=== PATIENT | male | born 1985 | race Caucasian/White ===

== ENCOUNTER → 2019-02-18 14:55 | Outpatient (CLI) | payer SELFPAY ==
--- NOTE | 2019-02-18 14:58 | DI.RAD.S_ITS ---
PROCEDURE: XR CHEST 2V INDICATIONS: SOB, Cough TECHNIQUE: 2 views of the chest were acquired. COMPARISON: None. FINDINGS: Surgical changes and devices: None. Lungs and pleura: Lungs are clear. No pleural effusions or pneumothorax. Mediastinum: Mediastinal contours are normal. Heart size is normal. Bones and chest wall: No suspicious bony abnormalities. Soft tissues appear unremarkable. IMPRESSION: No acute disease. Dictated by: Skip Chavez M.D. on 02/18/2019 at 15:29 Approved by: Skip Chavez M.D. on 02/18/2019 at 15:31
== END ==
PROVIDERS: Visit Provider Nurse Practitioner
DX: R06.02 Shortness of breath (principal); R05 Cough
CPT/HCPCS: 71046

== ENCOUNTER → 2020-02-06 11:02 | Outpatient (CLI) | payer SELFPAY ==
--- NOTE | 2020-02-06 11:03 | DI.RAD.S_ITS ---
PROCEDURE: XR ANKLE RT MIN 3V INDICATIONS: medal malleolus pain TECHNIQUE: AP, oblique, and lateral nonweightbearing views of the ankle were acquired. COMPARISON: None. FINDINGS: Bones: No fractures or dislocations. Small plantar and Achilles spurs. Ankle mortise is normally aligned. No suspicious bony lesions. Soft tissues: No tibiotalar joint effusion. Achilles tendon appears normal. IMPRESSION: No acute bony abnormality. Small plantar and Achilles spurs. Dictated by: Tone Washburn M.D. on 02/06/2020 at 10:29 Approved by: Tone Washburn M.D. on 02/06/2020 at 10:30
== END ==
PROVIDERS: Referring Provider Nurse Practitioner; Visit Provider Nurse Practitioner
DX: M25.571 Pain in right ankle and joints of right foot (principal); M77.51 Other enthesopathy of right foot and ankle
CPT/HCPCS: 73610

== ENCOUNTER → 2021-01-02 09:28 | Outpatient (CLI) | payer OTHER, SELFPAY ==
[2021-01-02 10:41] LABS: Add Manual Diff / Slide Review NO; Basophils Absolute Auto 100 /uL (0-100); Basophils Percent Auto 0.6 % (0-2); Eosinophils Absolute Auto 200 /uL (0-450); Eosinophils Percent Auto 2.9 % (2-4); Hematocrit 45.5 % (41-53); Hemoglobin 15.6 g/dL (13.5-17.5); Lymphocytes Absolute Auto 2500 /uL (1100-4500); Mean Corpuscular HGB Conc 34.4 % (30-36); Mean Corpuscular Hemoglobin 32.2 PG (26-34); Mean Corpuscular Volume 93.7 fL (80-100); Monocytes Absolute Auto 500 /uL (0-900); Neutrophils Absolute Auto 4900 /uL (1500-7000); Neutrophils Percent Auto 59.5 % (50-75); Platelet Count 123 X10^3/uL (150-400); Red Blood Cell Count 4.86 X10^6/uL (4.5-5.9); Red Cell Distribution Width 12.9 % (11.6-14.8); White Blood Cell Count 8.2 X10^3/uL (4.5-11.0)
[2021-01-02 10:51] LABS: Alanine Aminotransferase 46 IU/L (<50); Albumin 4.1 g/dL (3.5-5.0); Albumin Globulin Ratio 1.5 (1.0-2.8); Alkaline Phosphatase 73 U/L (38-126); Aspartate Aminotransferase 37 IU/L (17-59); BUN Creatinine Ratio 14.1 (6-22); Bilirubin Total 0.8 mg/dL (0.2-1.3); Blood Urea Nitrogen 9 mg/dL (9-20); Calcium 8.7 mg/dL (8.4-10.2); Carbon Dioxide 24 mmol/L (22-32); Chloride 110 mmol/L (98-107); Cholesterol 187 mg/dL (140-199); Estimated Glomerular Filt Rate > 60.0 mL/min (>60); Globulin 2.8 g/dL (1.7-4.1); Glucose 94 mg/dL (70-100); HDL Cholesterol 34 mg/dL (40-60); HEMOLYSIS < 15 (0-50); LDL Cholesterol Calculated 132 mg/dL (<100); Potassium 4.1 mmol/L (3.4-5.1); Sodium 138 mmol/L (137-145); Total Protein 6.9 g/dL (6.3-8.2); Triglycerides 107 mg/dL (35-150)
[2021-01-02 11:25] LABS: TSH w/ Reflex to FT4 2.68 uIU/mL (0.47-4.68)
== END ==
PROVIDERS: Referring Provider Family Medicine; Visit Provider Family Medicine
DX: F17.200 Nicotine dependence, unspecified, uncomplicated (principal); E66.9 Obesity, unspecified
CPT/HCPCS: 36415; 80053; 80061; 84443; 85025

== ENCOUNTER → 2021-04-11 12:27 | Outpatient (CLI) | payer OTHER, SELFPAY ==
[2021-04-11 13:57] LABS: Liquefaction Semen YES (YES); PH Semen 8.5 (7-8); Sperm Count 11 x10^6/mL (20-150); Sperm Morphology 30 %ABNORM (0-30)
[2021-04-11 14:00] LABS: Sperm Motility 50% % Motile
== END ==
PROVIDERS: PCP Family Medicine; Referring Provider Obstetrics & Gynecology; Visit Provider Obstetrics & Gynecology
DX: N46.9 Male infertility, unspecified (principal)
CPT/HCPCS: 89320

== ENCOUNTER 2021-05-08 23:43 | Emergency (ER) | payer OTHER, SELFPAY ==
--- NOTE | 2021-05-08 23:46 | ED.GENADULT ---
HPI - General Adult General Chief complaint: Recheck/Abnormal Lab/Rx Stated complaint: COVID exposure Time Seen by Provider: 05/08/21 23:46 Source: patient Mode of arrival: Ambulatory History of Present Illness HPI narrative: Patient is an otherwise healthy 35-year-old male. His father whom with the patient lives tested positive for COVID today. The patient is vaccinated. Patient's father has had symptoms for the past 3 days. Patient reports no current symptoms but would like to be tested for COVID. Related Data Home Medications Medication Instructions Recorded Confirmed No Known Home Medications 02/18/19 01/02/21 Allergies Allergy/AdvReac Type Severity Reaction Status Date / Time No Known Drug Allergies Allergy Verified 01/02/21 09:01 Review of Systems Constitutional Constitutional: Denies fever(s) and Denies headache(s) ENT Ears, Nose, Mouth, and Throat: Denies headache(s) Respiratory Respiratory: Denies cough Gastrointestinal Gastrointestinal: Reports system reviewed and no additional complaints, except as documented Neurologic Neurologic: Denies headache(s) Patient History Medical History Chest discomfort Foot pain Smoking Family History (Updated 01/06/21 @ 22:08 by Rachel Cast) Father Hyperlipidemia Diabetes mellitus Social History Smoking Status: Current every day smoker Smoking Status: Current every day smoker (1 PPD) Exam Initial Vital Signs Initial Vital Signs: Vital Signs Temperature 98.7 F 05/08/21 23:52 Pulse Rate 86 05/08/21 23:52 Respiratory Rate 16 05/08/21 23:52 Pulse Oximetry 98 05/08/21 23:52 HENMT Head: normal to inspection and normocephalic Resp Effort & Inspection: normal respiratory effort Cardio Rate: regular rate Skin General: no rashes or lesions noted Neuro General: patient alert, patient awake and moves all extremities Extrem General: normal to inspection Psych Appearance: grossly normal and well kempt Course Orders Ordered: ED Orders 05/08/21 23:47 COVID19 -Nasal swab/Pre-Proc Stat Vital Signs Vital signs: Vital Signs - 8 hr 05/08/21 23:52 Temperature 98.7 F Pulse Rate 86 Respiratory Rate 16 Pulse Oximetry 98 Medical Decision Making Lab Data Labs: Lab Results 05/08/21 Range/Units 23:47 SARS-CoV-2 (PCR) Negative (Negative) MDM Narrative Medical decision making narrative: Patient's COVID is negative. Discussed return precautions and follow-up instructions. Patient expressed understanding and agreement. Discharge Plan Departure Patient Disposition: Home Clinical Impression: Encounter for screening laboratory testing for COVID-19 virus Activity Restrictions/Additional Instructions: Your COVID-19 test was negative. I do recommend that you continue to wear your mask and isolate your cell from positive family members. Return to the emergency department for any new or worsening symptoms. Prescriptions: No Action No Known Home Medications 0RF Referrals: Donavon Wolf MD [Primary Care Provider] -
[2021-05-08 23:52] VITALS: PULSE 86; RESP 16; TEMP 37.1; O2SAT 98
[2021-05-09 00:06] LABS: COVID19 -Nasal RAPID Negative (Negative)
== END 2021-05-09 00:18 | disposition home or self-care (01) ==
PROVIDERS: Emergency Provider Emergency Medicine; PCP Family Medicine
DX: Z20.822 Contact with and (suspected) exposure to COVID-19 (principal); F17.200 Nicotine dependence, unspecified, uncomplicated
CPT/HCPCS: 87635; 99281; C9803

== ENCOUNTER → 2021-08-09 13:47 | Outpatient (CLI) | payer OTHER, SELFPAY | PROVIDERS: PCP Family Medicine; Referring Provider Physician Assistant; Visit Provider Physician Assistant | DX: J02.9 Acute pharyngitis, unspecified (principal) | CPT/HCPCS: 87070 ==

== ENCOUNTER → 2021-09-26 11:49 | Outpatient (CLI) | payer OTHER, SELFPAY ==
--- NOTE | 2021-09-26 12:05 | DI.RAD.S_ITS ---
PROCEDURE: XR HIP W PEL IF DONE BRAVO MIN 4V INDICATIONS: BILATERAL HIP PAIN TECHNIQUE: AP pelvis with lateral view(s) of the bilateral hip(s). COMPARISON: None. FINDINGS: Bones: No fractures or dislocations. Pelvic ring appears intact. No suspicious bony lesions. Bilateral joint spaces maintained. Soft tissues: The visualized bowel gas pattern is normal. No suspicious soft tissue calcifications. IMPRESSION: Unremarkable bilateral hip radiographs Approved by: Arjun Taylor M.D. on 09/26/2021 at 12:09
[2021-09-26 12:52] LABS: Add Manual Diff / Slide Review NO; Basophils Absolute Auto 100 /uL (0-100); Basophils Percent Auto 0.7 % (0-2); Eosinophils Absolute Auto 200 /uL (0-450); Eosinophils Percent Auto 2.2 % (2-4); Hematocrit 42.7 % (41-53); Hemoglobin 14.9 g/dL (13.5-17.5); Lymphocytes Absolute Auto 3500 /uL (1100-4500); Lymphocytes Percent Auto 36.6 % (25-40); Mean Corpuscular HGB Conc 34.9 % (30-36); Mean Corpuscular Hemoglobin 32.2 PG (26-34); Mean Corpuscular Volume 92.2 fL (80-100); Monocytes Absolute Auto 500 /uL (0-900); Monocytes Percent Auto 5.5 % (3-14); Neutrophils Absolute Auto 5200 /uL (1500-7000); Platelet Count 133 X10^3/uL (150-400); Red Blood Cell Count 4.63 X10^6/uL (4.5-5.9); Red Cell Distribution Width 13.3 % (11.6-14.8); White Blood Cell Count 9.5 X10^3/uL (4.5-11.0)
[2021-09-26 13:08] LABS: Alanine Aminotransferase 31 IU/L (<50); Albumin 4.5 g/dL (3.5-5.0); Albumin Globulin Ratio 1.6 (1.0-2.8); Alkaline Phosphatase 78 U/L (38-126); Aspartate Aminotransferase 28 IU/L (17-59); BUN Creatinine Ratio 14.3 (6-22); Bilirubin Total 0.7 mg/dL (0.2-1.3); Blood Urea Nitrogen 10 mg/dL (9-20); Calcium 8.8 mg/dL (8.4-10.2); Carbon Dioxide 25 mmol/L (22-32); Chloride 107 mmol/L (98-107); Cholesterol 167 mg/dL (140-199); Estimated Glomerular Filt Rate > 60 mL/min (>60); Globulin 2.8 g/dL (1.7-4.1); Glucose 87 mg/dL (70-100); HDL Cholesterol 40 mg/dL (40-60); HEMOLYSIS < 15 (0-50); LDL Cholesterol Calculated 106 mg/dL (<100); Potassium 4.1 mmol/L (3.4-5.1); Sodium 141 mmol/L (137-145); Total Protein 7.3 g/dL (6.3-8.2); Triglycerides 104 mg/dL (35-150)
[2021-09-30 18:17] LABS: Percent Free Testosterone 3.39 % (1.50-4.20); Testosterone Free 11.75 ng/dL (5.00-21.00); Testosterone Total 346.7 ng/dL (264.0-916.0)
== END ==
PROVIDERS: PCP Family Medicine; Referring Provider Family Medicine; Visit Provider Family Medicine
DX: D69.6 Thrombocytopenia, unspecified (principal); E78.2 Mixed hyperlipidemia; F17.200 Nicotine dependence, unspecified, uncomplicated; R53.83 Other fatigue; R86.8 Other abnormal findings in specimens from male genital organs; M25.551 Pain in right hip; M25.552 Pain in left hip
CPT/HCPCS: 36415; 73522; 80053; 80061; 84402; 84403; 85025

== ENCOUNTER → 2021-10-10 15:18 | Outpatient (CLI) | payer OTHER, SELFPAY ==
--- NOTE | 2021-11-01 08:12 | PM.CARDMON.1 ---
Surface Grinder Tender Report Referral & Results Date Patient Seen: 10/10/21 Requesting provider: Donavon Wolf Indication: Palpitations Duration of monitoring (days): 14 Diary information: There were 3 patient triggered events and 1 patient diary entry All for these events were associated variably with (within 45 seconds) sinus rhythm, PACs, and the single episode of SVT Data: Minimum heart rate identified was 40 beats per minute at 05:56 on 10/15/2021 Maximum sinus heart rate was 155 beats per minute at 15:14 on 10/12/2021 Maximum overall heart rate was 184 beats per minute at 13:04 on 10/17/2021 during a run of SVT Less than 1% of identified beats were ventricular or supraventricular ectopic in origin, which would classify them as rare. 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
== END ==
PROVIDERS: PCP Family Medicine; Referring Provider Family Medicine; Visit Provider Family Medicine
DX: R00.2 Palpitations (principal)
CPT/HCPCS: 93246; 93248

== ENCOUNTER → 2022-07-05 13:38 | Outpatient (CLI) | payer OTHER, SELFPAY ==
--- NOTE | 2022-07-05 13:41 | DI.RAD.S_ITS ---
PROCEDURE: XR CHEST 2V INDICATIONS: Ongoing cough TECHNIQUE: 2 views of the chest were acquired. COMPARISON: [facility], CR, XR CHEST 2V, 02/18/2019, 14:55. FINDINGS: Surgical changes and devices: None. Lungs and pleura: Lungs are clear. No pleural effusions or pneumothorax. Mediastinum: Mediastinal contours are normal. Heart size is normal. Bones and chest wall: No suspicious bony abnormalities. Soft tissues appear unremarkable. IMPRESSION: Normal for age, source of current cough symptoms is not seen. Dictated by: David Bowen M.D. on 07/05/2022 at 14:13 Approved by: David Bowen M.D. on 07/05/2022 at 14:14
== END ==
PROVIDERS: PCP Family Medicine; Referring Provider Physician Assistant; Visit Provider Physician Assistant
DX: R05.9 Cough, unspecified (principal)
CPT/HCPCS: 71046

== ENCOUNTER → 2022-12-11 11:22 | Outpatient (CLI) | payer OTHER, SELFPAY | PROVIDERS: PCP Family Medicine; Visit Provider Nurse Practitioner Family | DX: R10.9 Unspecified abdominal pain (principal) | CPT/HCPCS: 87086 ==

== ENCOUNTER → 2022-12-11 11:58 | Outpatient (CLI) | payer OTHER, SELFPAY ==
--- NOTE | 2022-12-11 11:59 | DI.RAD.S_ITS ---
PROCEDURE: XR KUB INDICATIONS: hematuria TECHNIQUE: One view of the abdomen acquired. COMPARISON: None. FINDINGS: An 8 mm rounded calcification projects over the right renal pelvis. No pathologically dilated gas-filled loops of bowel. IMPRESSION: 8 mm rounded calcification projecting over the right renal pelvis could represent a renal stone. Dictated by: Abhishek Garcia M.D. on 12/11/2022 at 15:13 Approved by: Abhishek Garcia M.D. on 12/11/2022 at 15:17
== END ==
PROVIDERS: PCP Family Medicine; Referring Provider Nurse Practitioner Family; Visit Provider Nurse Practitioner Family
DX: R31.9 Hematuria, unspecified (principal); R10.9 Unspecified abdominal pain
CPT/HCPCS: 74018; 87086

== ENCOUNTER → 2022-12-19 07:43 | Outpatient (CLI) | payer OTHER, SELFPAY ==
--- NOTE | 2022-12-19 07:44 | DI.RAD.S_ITS ---
PROCEDURE: XR KUB INDICATIONS: Kidney stones TECHNIQUE: One view of the abdomen acquired. COMPARISON: [facility], CR, XR CHEST 2V, 07/05/2022, 13:41. [facility], CR, XR KUB, 12/11/2022, 12:11. FINDINGS: Surgical changes and devices: None. Bowel: Bowel gas pattern is normal. Soft tissues: 8 millimeter round calcification projecting over the right renal pelvis is unchanged. No suspicious abdominal calcifications. Visualized solid organ contours appear normal in size. Bones: No suspicious bony lesions. IMPRESSION: 8 millimeter rounded projection over the right renal pelvis could represent a renal stone. Dictated by: Ori Haq M.D. on 12/19/2022 at 8:37 Approved by: Ori Haq M.D. on 12/19/2022 at 8:39
== END ==
PROVIDERS: PCP Family Medicine; Referring Provider Specialist; Visit Provider Specialist
DX: N20.0 Calculus of kidney (principal)
CPT/HCPCS: 74018; 81002

== ENCOUNTER 2022-12-27 06:23 | Day surgery (SDC) | payer OTHER, SELFPAY ==
[2022-12-20 08:32] VITALS: BMI 39.5
--- NOTE | 2022-12-27 | DI.RAD.S_ITS ---
PROCEDURE: XR KUB INDICATIONS: pre op TECHNIQUE: One view of the abdomen acquired. COMPARISON: [facility], CR, XR KUB, 12/19/2022, 7:59. [facility], CR, XR KUB, 12/11/2022, 12:11. FINDINGS: Surgical changes and devices: None. Bowel: Bowel gas pattern is normal. Soft tissues: Right kidney stone projecting over the right kidney measuring 0.8 cm, unchanged. No suspicious abdominal calcifications. Visualized solid organ contours appear normal in size. Bones: No suspicious bony lesions. IMPRESSION: Right kidney stone projecting over the right kidney measuring 0.8 cm, unchanged. Dictated by: Jim Velarde M.D. on 12/27/2022 at 8:06 Approved by: Jim Velarde M.D. on 12/27/2022 at 8:07
[2022-12-27 06:40] VITALS: BP 123/74; PULSE 83; RESP 16; TEMP 36; O2SAT 98; BMI 39.5
[2022-12-27] MEDS: LACTATED RINGERS 1,000 ML 84 ML IV (07:09)
--- NOTE | 2022-12-27 07:40 | P.OP.PRE_ITS ---
Pre-operative Note COVID-19 Criteria for continued procedure: Expected advancement of disease process, Continuing or worsening of significant or severe pain, Deterioration of the patient's condition or overall health and Delay expected to result in less- positive ultimate med/surg outcome Interval Note History & Physical reviewed/Exam performed by Physician: Yes Changes to H&P: No
--- NOTE | 2022-12-27 08:05 | SUR.OPER ---
Supine on ESWL table, head on pillow, arms padded and tucked, legs uncrossed, safety belt at thigh, tape over blanket over lower legs.
[2022-12-27 08:45] VITALS: BP 110/70; PULSE 63; RESP 16; TEMP 36.3; O2SAT 93
[2022-12-27] MEDS: ALBUTEROL 2.5 MG/3 ML NEB (ADULT) INH (08:47)
[2022-12-27 08:53] VITALS: BP 116/81; PULSE 76; RESP 16; O2SAT 96
[2022-12-27] MEDS: FUROSEMIDE 40 MG/4 ML VIAL 20 MG IV (08:56)
[2022-12-27 08:58] VITALS: BP 109/62; PULSE 77; RESP 16; O2SAT 95
[2022-12-27 09:05] VITALS: BP 104/65; PULSE 67; RESP 12; TEMP 36.3; O2SAT 93
[2022-12-27 09:11] VITALS: BP 115/61; PULSE 62; RESP 12; TEMP 36.5; O2SAT 94
--- NOTE | 2022-12-27 09:15 | P.OP_ITS ---
Operative Date/Time/Diagnoses Date of procedure: 12/27/22 Time of procedure: 09:15 Pre-op diagnosis: 1. 9 mm right renal calculus. 2. History of right renal colic. Post-op diagnosis: same Procedure & Clinicians Procedure: 1. Right extracorporeal shockwave lithotripsy (maximal power level 8.0 x 2500 shocks). Same procedure as scheduled: Yes Indications: 1. 9 mm right renal calculus. 2. History of right renal colic. Surgeon: Barbara Esparza Click Yes if Unassisted: Yes Anesthesia Type: General Operative Notes Findings: Index calculus located within the central right renal collecting system. Closure Type: not applicable Specimen(s): none sent Estimated Blood Loss (mL): 0 Procedure in detail: Patient was positioned supine and administered general anesthesia. The above- described index calculus was then localized in the X, Y, and Z plane. Lithotripsy was commenced at minimal power level for total 200 shocks. A 2 minute pause was then conducted. Lithotripsy was then resumed and the power level gradually increased to maximum of 8.0. The stone and its fragments were localize as needed fluoroscopically throughout the case. A 2500 shocks there was excellent radiographic evidence of stone comminution. The patient was then awakened, transferred regarding, and then transferred recovery in stable condition. Complications: none Post-operative Condition: stable Disposition: PACU Plan for aftercare: Discharge home.
[2022-12-27] MEDS: ACETAMINOPHEN 325 MG TABLET 975 MG PO (09:32)
== END 2022-12-27 09:40 | disposition home or self-care (01) ==
PROVIDERS: PCP Family Medicine; Referring Provider Specialist; Visit Provider Specialist
PROC: (CPT 50590; principal; 2022-12-27 07:45)
DX: N20.0 Calculus of kidney (principal)
CPT/HCPCS: 50590; 74018; J0330; J1100; J1940; J2250; J2405; J2704; J3010; J7613

== ENCOUNTER 2022-12-31 03:01 | Emergency (ER) | payer OTHER, SELFPAY ==
[2022-12-31 03:07] VITALS: BP 139/80; PULSE 83; RESP 18; TEMP 36.8; O2SAT 98; BMI 39.8
[2022-12-31] MEDS: ONDANSETRON 4 MG/2 ML INJ IV (03:15)
--- NOTE | 2022-12-31 03:16 | ED_ITS ---
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 He is taken an oxycodone at 11 and 1 at 11:30 p.m. vomited both of those up and comes in with enough pain in the left side that he is having trouble sitting or finding any type of comfortable position. He is pale and diaphoretic. Describes no recent fevers. Has not noticed any acute hematuria. Related Data Previous Rx's Medication Instructions Recorded tamsulosin 0.4 mg capsule (Flomax) 0.4 mg PO BEDTIME #20 caps 12/11/22 tramadol 50 mg tablet 50 mg PO Q12H PRN pain #20 tabs 12/17/22 oxycodone 5 mg tablet 5 mg PO Q4H PRN pain #14 tabs 12/27/22 ondansetron 4 mg disintegrating 4 mg PO Q8H PRN nausea and 12/31/22 tablet vomiting #10 tabs oxycodone-acetaminophen 5 mg-325 1 tab PO Q6H PRN pain #10 tabs 12/31/22 mg tablet Allergies Allergy/AdvReac Type Severity Reaction Status Date / Time No Known Drug Allergies Allergy Verified 12/27/22 06:39 Review of Systems Review of Systems Narrative: Pertinent positive and negative findings as per HPI Patient History Medical History Abnormal sperm morphology Ankle pain Bronchitis Chest discomfort Encounter for screening laboratory testing for COVID-19 virus Exertional chest pain Foot pain Hip pain, bilateral Hyperlipidemia Palpitations Reactive airway disease Right renal stone Smoking Thrombocytopenia Wheeze Family History Father Hyperlipidemia Diabetes mellitus Kidney stones Social History household members: spouse occupational status: employed Smoking Status: Current every day smoker Tobacco: How many years used: 15 alcohol intake: never caffeine: Yes Type(s) of exercise: none Smoking Status: Current every day smoker tobacco type: cigarettes Substance Use Type: does not use Exam Initial Vital Signs Initial Vital Signs: Vital Signs Temperature 98.3 F 12/31/22 03:07 Pulse Rate 83 12/31/22 03:07 Respiratory Rate 18 12/31/22 03:07 Blood Pressure 139/80 12/31/22 03:07 Pulse Oximetry 98 12/31/22 03:07 Oxygen Delivery Method Room Air 12/31/22 03:07 General: Healthy appearing, in obvious pain, pale, diaphoretic Able to give a complete and coherent history. Well-nourished well-developed Respiratory: Lungs are clear to auscultation, no wheezing no rales no rhonchi. Full and symmetrical air movement Cardiac: Regular rate and rhythm no murmurs no bruits Abdomen: Soft, nontender, right flank pain Skin: Pale, diaphoretic, no rashes Neurologic: Grossly neurologically intact with no obvious asymmetries or abnormalities Extremities: No trauma, well perfused Psych: Cooperative, appropriate insight and affect Course Orders Ordered: ED Orders 12/31/22 03:28 CT kidney ureter bladder (KUB) Stat Complete Blood Count AUTO DIFF Stat Comprehensive Metabolic Panel Stat Urinalysis and Microscopic Stat Discontinued Medications Ondansetron HCl (Ondansetron 4 Mg/2 Ml Inj) 4 mg IV NOW ONE Stop: 12/31/22 03:12 Last Admin: 12/31/22 03:15 Dose: 4 mg Documented By: Vital Signs Vital signs: Vital Signs - 8 hr 12/31/22 03:07 Temperature 98.3 F Pulse Rate 83 Respiratory Rate 18 Blood Pressure 139/80 Pulse Oximetry 98 Oxygen Delivery Method Room Air Medical Decision Making MDM Narrative Medical decision making narrative: CC: Right flank pain Complicating co-morbidities: Lithotripsy on December 27 Data collected from: patient, Medical records reviewed: 37-year-old gentleman diagnosed with right ureterolithiasis on December 11 was seen initially in walk-in clinic, followed up by primary care physician eventually seen by Urology with ESWL performed on December 27. Notes from each of these visits reviewed Differential considered: Ureterolithiasis, ureteral rupture, hydronephrosis, pyelonephritis Exam documented above, pertinent findings include: Waves of renal colicky pain, pale diaphoresis Lab Test results independently reviewed as above. Pertinent findings: CBC shows a leukocytosis 16,000 with 78.5 neutrophils no anemia Chemistries are within normal limits Urine has essentially ketones and blood there is trace leukocytes esterase. Imaging studies independently reviewed: CT KUB is ordered and shows moderate to severe right hydro ureteral nephrosis when the with an obstructing 3 mm mid ureteral calculus and other nonobstructing 1-2 mm right intrarenal calculi appreciated no free fluid within the pelvis Discussion: After fluids, Toradol and Dilaudid patient is feeling significantly improved. There is no fever or other signs of infection. I suspect the leukocytosis is related to the severity of his pain with demargination and the blood in his urine is related to the stones and recent lithotripsy. I did review with patient very clearly signs and symptoms of obstructive pyelonephritis and reviewed with him the urgency needed to return to the emergency department with fevers or chills. Pain is adequately controlled at this point. He has 2 more oxycodone left at home and he still has tamsulosin at home. Reviewed with him recommendations for ibuprofen, Tylenol and oxycodone for pain control continue tamsulosin until the 3 mm stone is passed. Follow-up with Urology as scheduled and return to the ER if symptoms are not improving or he has recurrent episodes of severe renal colic that is causing emesis. He expresses understanding and is safe for discharge home Discharge Plan Departure Patient Disposition: Home Clinical Impression: Ureterolithiasis Instructions: DI for Kidney Stones Activity Restrictions/Additional Instructions: Thank you for coming in tonight It looks like the lithotripsy did exactly what it needed to do. Your 8 mm stone has been broken up. Unfortunately there is a 3 mm piece of the stone that now is stuck in the middle of the ureter. This is what is causing the acute pain. I suspect that this will pass within the next couple of days without any additional intervention. Please do continue the Flomax until you note this 3 mm stone coming out. Using 400 mg of ibuprofen (2 [id number] pills) and 1 Tylenol every 6 hours can be very helpful in controlling pain. For severe pain use 400 mg of ibuprofen and 1 Percocet. Percocet has Tylenol plus oxycodone in it. Oxycodone is a narcotic and likely will make you constipated please make sure you are using a stool softener on the days when you do use narcotic. I have also given you a prescription for Zofran, a nausea medication that is sometimes helpful the queasiness left over from the kidney stone pain. Prescriptions have been electronically transmitted to [facility]. If you are developing fevers dysuria or increasing pain to suggest an infection, it is vital that you return to the emergency department. Please keep your scheduled follow-up with Dr. Esparza If you find that you are getting worse or develop any new symptoms, please feel free to return to the emergency department for further evaluation. Prescriptions: New ondansetron 4 mg tablet,disintegrating 4 mg PO Q8H PRN (Reason: nausea and vomiting) Qty: 10 0RF oxycodone-acetaminophen 5-325 mg tablet 1 tab PO Q6H PRN (Reason: pain) Qty: 10 0RF No Action tamsulosin [Flomax] 0.4 mg capsule 0.4 mg PO BEDTIME Qty: 20 0RF tramadol 50 mg tablet 50 mg PO Q12H PRN (Reason: pain) Qty: 20 0RF oxycodone 5 mg tablet 5 mg PO Q4H PRN (Reason: pain) Qty: 14 0RF Referrals: Donavon Wolf MD [Primary Care Provider] - Stand Alone Forms: Patient Portal/API
--- NOTE | 2022-12-31 03:28 | DI.CT.S_ITS ---
PROCEDURE: CT KIDNEY URETER BLADDER (KUB) INDICATIONS: renal colic TECHNIQUE: Axial sections were acquired from the lung bases to the pubic symphysis. Coronal and sagittal reformats were performed. For radiation dose reduction, the following was used: automated exposure control, adjustment of mA and/or kV according to patient size. COMPARISON: [facility], CR, XR KUB, 12/27/2022, 7:44. FINDINGS: Image quality: Excellent. Lung bases: Unremarkable. Small hiatal hernia. Heart: No significant findings. URINARY: Right Kidney: A few 1-3 mm stones in right kidney. Moderate hydronephrosis and mild perinephric stranding. Right Ureter: There is a 3 mm stone in the proximal ureter demonstrating CT density 430 HU. A tiny 1 mm stone is seen immediately superior to the larger stone. Left Kidney: No stones or hydronephrosis. Left Ureter: No hydroureter. Bladder: Normal wall thickness. No stones. ABDOMEN: Liver: Unremarkable. Gallbladder: Unremarkable. Biliary ducts: Unremarkable. Pancreas: Unremarkable. Spleen: Unremarkable. Adrenal Glands: Unremarkable. Stomach and Bowel: Stomach, small bowel loops, and colon are unremarkable. Normal appendix. Peritoneum: No abnormal intraperitoneal fluid. No free air. Ventral Wall: No hernia. Abdominal Nodes: No enlarged retroperitoneal or mesenteric lymph nodes. Vessels: Aorta and inferior vena cava are normal in size. PELVIS: Pelvic Organs: Unremarkable. Pelvic Nodes: Unremarkable. Miscellaneous: No inguinal hernias are seen. Bones: Unremarkable. IMPRESSION: 1. There is a 3 mm obstructive stone and in the proximal right ureter causing moderate right hydronephrosis. 2. A few small nonobstructive right renal calculi. No significant discrepancy with the resident care aid radiology preliminary report. Dictated by: Becky Sykes M.D. on 12/31/2022 at 7:52 Approved by: Becky Sykes M.D. on 12/31/2022 at 7:57
[2022-12-31] MEDS: SODIUM CHLORIDE 0.9% 1,000 ML 1000 ML IV (03:34)
[2022-12-31] MEDS: HYDROMORPHONE 0.5 MG INJ IV (03:34)
[2022-12-31] MEDS: KETOROLAC 30 MG/ML VIAL 15 MG IV (03:34)
[2022-12-31 03:38] LABS: Add Manual Diff / Slide Review NO; Basophils Absolute Auto 100 /uL (0-100); Basophils Percent Auto 0.4 % (0-2); Eosinophils Absolute Auto 100 /uL (0-450); Eosinophils Percent Auto 0.8 % (2-4); Hematocrit 43.8 % (41-53); Lymphocytes Absolute Auto 2300 /uL (1100-4500); Lymphocytes Percent Auto 14.7 % (25-40); Mean Corpuscular HGB Conc 34.2 % (30-36); Mean Corpuscular Hemoglobin 31.8 PG (26-34); Mean Corpuscular Volume 93.2 fL (80-100); Monocytes Absolute Auto 900 /uL (0-900); Monocytes Percent Auto 5.6 % (3-14); Neutrophils Absolute Auto 12600 /uL (1500-7000); Neutrophils Percent Auto 78.5 % (50-75); Platelet Count 168 X10^3/uL (150-400); Red Cell Distribution Width 13.5 % (11.6-14.8)
[2022-12-31 03:40] LABS: Alanine Aminotransferase 27 IU/L (<50); Albumin 4.4 g/dL (3.5-5.0); Albumin Globulin Ratio 1.4 (1.0-2.8); Alkaline Phosphatase 83 U/L (38-126); Aspartate Aminotransferase 28 IU/L (17-59); Bilirubin Total 0.6 mg/dL (0.2-1.3); Blood Urea Nitrogen 13 mg/dL (9-20); Calcium 8.5 mg/dL (8.4-10.2); Carbon Dioxide 23 mmol/L (22-32); Chloride 105 mmol/L (98-107); Estimated Glomerular Filt Rate > 60 mL/min (>60); Globulin 3.1 g/dL (1.7-4.1); Glucose 129 mg/dL (70-100); HEMOLYSIS 15 (0-50); Potassium 4.3 mmol/L (3.4-5.1); Sodium 140 mmol/L (137-145); Total Protein 7.5 g/dL (6.3-8.2)
[2022-12-31 04:24] LABS: Appearance Urine UA CLEAR; Bilirubin Urine UA 1+ (NEGATIVE); Color Urine UA YELLOW; Glucose Urine UA NEGATIVE (Negative); Ketones Urine UA TRACE (NEGATIVE); Leukocyte Esterase Urine UA TRACE (NEGATIVE); Nitrite Urine UA NEGATIVE (Negative); Occult Blood Urine UA 3+ (Negative); Protein Urine UA 1+ (Negative); Specific Gravity Urine UA >=1.030 (1.000-1.035); pH Urine UA 5.5 (4.5-8.0)
[2022-12-31 04:32] LABS: Ictotest Urine Negative (Negative)
[2022-12-31 04:38] LABS: Amorphous Sediment Urine 2+; Bacteria Urine None Seen; Calcium Oxalate Crystals Urine Occasional; Culture Indicated Urine Specimen Cultured; Mucus Urine 3+ (Negative); RBC Urine 30-100/HPF (0-5/HPF); Squamous Epithelial Cell Urine None Seen (0-5/HPF); WBC Urine 1-5/HPF (0-5/HPF)
[2022-12-31] MEDS: OXYCODONE/APAP 5/325 PREPACK 1 BOTTLE MISC (04:43)
[2022-12-31] MEDS: ONDANSETRON 4 MG ODT PREPACK 1 BOTTLE MISC (04:43)
== END 2022-12-31 04:49 | disposition home or self-care (01) ==
PROVIDERS: Emergency Provider Emergency Medicine; PCP Family Medicine
DX: N20.1 Calculus of ureter (principal)
CPT/HCPCS: 36415; 74176; 80053; 81001; 85025; 87086; 96361; 96374; 96375; 99284; J1170; J1885; J2405

== ENCOUNTER → 2023-02-24 17:20 | Outpatient (CLI) | payer OTHER, SELFPAY ==
--- NOTE | 2023-02-24 17:22 | DI.RAD.S_ITS ---
PROCEDURE: XR KUB INDICATIONS: calculus of kidney TECHNIQUE: One view of the abdomen acquired. COMPARISON: [facility], CR, XR KUB, 12/19/2022, 7:59. [facility], CT, CT KIDNEY URETER BLADDER (KUB), 12/31/2022, 3:49. [facility], CR, XR KUB, 12/27/2022, 7:44. FINDINGS: Surgical changes and devices: None. Bowel: Bowel gas pattern is normal. Soft tissues: No suspicious abdominal calcifications. Bones: No suspicious bony lesions. IMPRESSION: Previously visualized right renal stone not identified and no additional radiopaque renal stone seen today projecting over the kidneys, ureters or the urinary bladder. Dictated by: Gus Santos RR Interpreted: Abhishek Garcia MD on 02/24/2023 at 19:52 Transcribed by: OSVALDO on 02/25/2023 at 8:16 Approved by: Abhishek Garcia M.D. on 02/25/2023 at 18:14
[2023-02-24 18:27] LABS: Calcium 9.1 mg/dL (8.4-10.2); Uric Acid 7.1 mg/dL (3.5-8.5)
[2023-02-27 06:39] LABS: Parathyroid Hormone Int 69 pg/mL (15-65)
== END ==
PROVIDERS: PCP Family Medicine; Referring Provider Specialist; Visit Provider Specialist
DX: N20.0 Calculus of kidney (principal)
CPT/HCPCS: 74018; 82310; 83970; 84550

== ENCOUNTER → 2023-03-01 11:09 | Outpatient (CLI) | payer OTHER, SELFPAY ==
--- NOTE | 2023-03-01 11:26 | DI.RAD.S_ITS ---
PROCEDURE: XR CHEST 2V INDICATIONS: eval for pneumonia TECHNIQUE: 2 views of the chest were acquired. COMPARISON: [facility], CR, XR CHEST 2V, 07/05/2022, 13:41. FINDINGS: Surgical changes and devices: None. Lungs and pleura: Lungs are clear. No pleural effusions or pneumothorax. Mediastinum: Mediastinal contours are normal. Heart size is normal. Bones and chest wall: No suspicious bony abnormalities. Soft tissues appear unremarkable. IMPRESSION: No acute cardiopulmonary abnormality is seen. Dictated by: Vipin Castro M.D. on 03/01/2023 at 10:56 Approved by: Vipin Castro M.D. on 03/01/2023 at 10:57
[2023-03-01 12:01] LABS: COVID-19 CEPHEID 4-PLEX PCR Negative (Negative); Influenza A - CEPHEID Flu A NEGATIVE (NEGATIVE); Influenza B - CEPHEID Flu B NEGATIVE (NEGATIVE); Respiratory Syncytial Virus Negative (Negative)
== END ==
PROVIDERS: PCP Family Medicine; Referring Provider Physician Assistant; Visit Provider Physician Assistant
DX: R05.9 Cough, unspecified (principal); N20.0 Calculus of kidney
CPT/HCPCS: 0241U; 36415; 71046; 82310; 83970

== ENCOUNTER → 2023-03-01 11:23 | Outpatient (CLI) | payer OTHER, SELFPAY ==
[2023-03-04 08:14] LABS: Calcium 8.2 mg/dL (8.7-10.2); Parathyroid Hormone, Intact 94 pg/mL (15-65)
== END ==
PROVIDERS: PCP Family Medicine; Referring Provider Specialist; Visit Provider Specialist
DX: N20.0 Calculus of kidney (principal)
CPT/HCPCS: 36415; 82310; 83970

== ENCOUNTER → 2023-03-12 21:36 | Outpatient (CLI) | payer OTHER, SELFPAY ==
[2023-03-20 18:38] LABS: Ca oxalate dihydrate 20 % (.); Ca oxalate monohydr 80 % (.); Size 3x3 mm (.)
== END ==
PROVIDERS: PCP Family Medicine; Visit Provider Specialist
DX: N20.0 Calculus of kidney (principal); Z87.442 Personal history of urinary calculi
CPT/HCPCS: 81002; 82365

== ENCOUNTER → 2023-09-02 08:57 | Outpatient (CLI) | payer OTHER, SELFPAY ==
--- NOTE | 2023-09-02 09:00 | DI.RAD.S_ITS ---
PROCEDURE: XR KUB INDICATIONS: kidney stones TECHNIQUE: One view of the abdomen acquired. COMPARISON: [facility], CR, XR KUB, 02/24/2023, 17:43. FINDINGS: Surgical changes and devices: None. Bowel: Bowel gas pattern is normal. Soft tissues: No suspicious abdominal calcifications. Visualized solid organ contours appear normal in size. Bones: No suspicious bony lesions. IMPRESSION: No acute abnormality. Approved by: Arjun Taylor M.D. on 09/02/2023 at 18:05
[2023-09-04 18:36] LABS: Parathyroid Hormone, Intact 91 pg/mL (15-65)
== END ==
PROVIDERS: PCP Family Medicine; Referring Provider Specialist; Visit Provider Specialist
DX: N20.0 Calculus of kidney (principal); Z87.442 Personal history of urinary calculi
CPT/HCPCS: 36415; 74018; 81002; 82310; 83970

== ENCOUNTER → 2025-03-01 15:11 | Outpatient (CLI) | payer OTHER, SELFPAY ==
--- NOTE | 2025-03-02 17:17 | DI.NM.S_ITS ---
DATE OF SERVICE: 03/02/2025 EXERCISE STRESS TEST INDICATIONS: Chest tightness, obesity. CARDIAC STRESS: The patient underwent exercise stress test under the supervision of an attending staff using standard Swapnil protocol for about 8 minutes and 2 seconds, achieved maximum heart rate of 180 which was 99% of target heart rate. Resting blood pressure 120/84. Peak blood pressure 190/96. Baseline rhythm sinus. During stress, no convincing ischemic changes seen. No significant arrhythmias. No chest pain. Had shortness of breath. Normal recovery. GRADY positive 34%, 10.1 METS of workload. CONCLUSION: Exercise stress test is negative for inducible ischemia. Maximum blood pressure 190/96. No significant arrhythmias. No chest pain. Diminished exercise tolerance. Normal recovery. Overall, low- risk exercise stress test. Norman Hays - RUSTAM/laina/DEAN doc#: [id number]/job#: [id number] dd: 03/02/2025 17:03:00 dt: 03/02/2025 17:10:00 DICTATING /COPIES TO: Alfredo Noel MD COPIES MNE: DEANN;
== END ==
LOC: NUCM 15:12
PROVIDERS: PCP Family Medicine; Referring Provider Family Medicine; Visit Provider Family Medicine
DX: R07.2 Precordial pain (principal); E66.01 Morbid (severe) obesity due to excess calories; Z68.41 Body mass index [BMI] 40.0-44.9, adult
CPT/HCPCS: 93017